=== PATIENT | female | born 1995 | race Caucasian/White ===

== ENCOUNTER 2021-05-29 09:24 | Outpatient (CLI) | payer MEDICAID, SELFPAY ==
[2021-05-29 10:42] LABS: HCG Quant, Pregnancy 2112 mIU/mL (1-3)
== END 2021-05-29 09:25 | disposition home or self-care (01) ==
LOC: LBO 09:25
PROVIDERS: Visit Provider Obstetrics & Gynecology
DX: O03.9 Complete or unspecified spontaneous abortion without complication (principal)
CPT/HCPCS: 36415; 86850; 86900; 86901; 84702

== ENCOUNTER 2021-06-05 04:21 | Outpatient (CLI) | payer MEDICAID, SELFPAY ==
[2021-06-05 10:26] LABS: HCG Quant, Pregnancy 214 mIU/mL (1-3)
== END 2021-06-05 04:22 | disposition home or self-care (01) ==
LOC: LBO 04:22
PROVIDERS: Visit Provider Obstetrics & Gynecology
DX: O03.9 Complete or unspecified spontaneous abortion without complication (principal)
CPT/HCPCS: 36415; 84702

== ENCOUNTER 2021-06-17 01:40 | Outpatient (CLI) | payer MEDICAID, SELFPAY ==
[2021-06-17 16:35] LABS: HCG Quant, Pregnancy 11 mIU/mL (1-3)
== END 2021-06-17 01:41 | disposition home or self-care (01) ==
LOC: LBO 01:41
PROVIDERS: Visit Provider Obstetrics & Gynecology
DX: O03.9 Complete or unspecified spontaneous abortion without complication (principal)
CPT/HCPCS: 36415; 84702

== ENCOUNTER 2022-07-21 02:32 | Outpatient (CLI) | payer MEDICAID, SELFPAY ==
[2022-07-21 11:12] LABS: Abs Immature Grans 0.03 10^3/uL (0.0-0.06); Absolute Basophil Count 0.04 10^3/uL (0.0-0.2); Absolute Eosinophil Count 0.08 10^3/uL (0.0-0.7); Absolute Lymphocyte Count 1.54 10^3/uL (1.2-3.4); Absolute Monocyte Count 0.72 10^3/uL (0.1-0.8); Absolute Neutrophil Count 6.88 10^3/uL (1.2-6.7); Basophils % 0.4; Eosinophils % 0.9; HCT 40.2 % (36.0-46.0); HGB 13.8 g/dL (11.2-15.7); Immature Grans % 0.3; Lymphocytes % 16.6; MCH 28.5 pg (27.0-33.0); MCHC 34.3 % (32.0-36.0); MCV 83 fL (80-95); MPV 9.8 fL (8.0-11.0); Monocytes % 7.8; Platelet Count 297 10^3/uL (130-400); RBC 4.84 10^6/uL (3.93-5.22); RDW-SD 36.2 fL; WBC 9.29 10^3/uL (4.4-10.8)
[2022-07-22 09:30] LABS: Hepatitis B Surface Ag Negative (Negative)
[2022-07-22 10:01] LABS: Hepatitis C Ab w Rflx HCV PCR Negative (Negative)
[2022-07-22 10:24] LABS: HIV-1/2 Ag & Ab Screen Negative (Negative)
[2022-07-22 10:55] LABS: Varicella IgG Antibody Positive (See Note)
[2022-07-22 11:45] LABS: Rubella IgG Ab (UVM) Equivocal (See Note)
[2022-07-22 23:00] LABS: Syphilis IgG w/Reflex Nonreactive (Nonreactive)
== END 2022-07-21 02:33 | disposition home or self-care (01) ==
LOC: LBO 02:33
PROVIDERS: Visit Provider Advanced Practice Midwife
DX: Z34.91 Encounter for supervision of normal pregnancy, unspecified, first trimester (principal); Z3A.12 12 weeks gestation of pregnancy
CPT/HCPCS: 36415; 86787; 86803; 86850; 86900; 86901; 87340; 87389; 85025; 86762; 86780

== ENCOUNTER 2022-07-21 11:02 | Outpatient (REF) | payer MEDICAID, SELFPAY ==
--- NOTE | 2022-07-21 10:20 | PAPFT_PTH ---
PATIENT: Sonam Coronel LOC: [facility] U#:[id number] AGE/SX: 27/F ROOM: RE07/21/[address]: Rosario London CNM : 1995 BED: DIS: 07/21/2022 SPEC #: [id number] RECD: 07/21/22 13:08 STATUS: LIBIA REQ #: [id number] NEELA: 07/21/22 10:[address]: Rosario London DEPT: [facility] Cytology RECD BY: Beverly Nguyen Tissues: 1 - CX/ENDOCX FOR PAP SMEARS Procedures: PAP THIN PREP/UVM Screening Comments: [id number] (CHLAMYDIA/GC)
[2022-07-21 11:40] LABS: *AMPHETAMINES SCREEN URINE Negative (Negative); *BARBITURATES SCREEN URINE Negative (Negative); *BENZODIAZEPINES SCREEN URINE Negative (Negative); Cannabinoids THC Negative (Negative); Cocaine Screen,Urine Negative (Negative); METHADONE URINE SCREEN Negative (Negative); OPIATES URINE SCREEN Negative (Negative)
[2022-07-21 11:44] LABS: Tricyclic Antidepressants Negative (Negative)
[2022-07-22 13:41] LABS: Chlamydia Result Negative (Negative); GC Result Negative (Negative)
[2022-07-26 02:53] LABS: Buprenorphine Negative ng/mL (Cutoff: 5.0); Norbuprenorphine Negative ng/mL (Cutoff: 2.5)
== END 2022-07-21 11:03 | disposition home or self-care (01) ==
LOC: LBN 11:02
PROVIDERS: Visit Provider Advanced Practice Midwife
DX: Z34.91 Encounter for supervision of normal pregnancy, unspecified, first trimester (principal); Z11.3 Encounter for screening for infections with a predominantly sexual mode of transmission; Z12.4 Encounter for screening for malignant neoplasm of cervix; Z3A.12 12 weeks gestation of pregnancy
CPT/HCPCS: 80307; 80348; 87491; 87591; 88142; 87086

== ENCOUNTER 2022-09-20 00:49 | Outpatient (CLI) | payer MEDICAID, SELFPAY ==
--- NOTE | 2022-09-20 08:00 | DI.US_ITS ---
Exam(s) US OB 2-3 TRIMESTER EXAM: US OB 2-3 TRIMESTER CLINICAL HISTORY: morphology,Z34.92. TECHNIQUE: Transabdominal obstetrical ultrasound performed. COMPARISON: US POCUS EXAM from 06/23/2022 FINDINGS: Number of fetuses: One. position: Variable Placental grade: 1 Placental location: Anterior no evidence of previa. BIOMETRIC DATA: BPD: 49mm = 20+ 6 weeks HC: 189mm = 21+ weeks AC: 165mm = 20 1+4 weeks FL: 33mm = 20+ 2 weeks Cisterna Magna: 4.2 mm Cerebellum: 2.0 cm EFW: 3 9 grms 38% Composite Age: 21+ 0 weeks EDC by US: 31 January 2023 Heart Rate: 135BPM Amniotic fluid : Amount of fluid is within normal limits. ANATOMICAL SURVEY: Four-chambered heart: Unremarkable. LVOT: Unremarkable. RVOT: Unremarkable. Left-sided stomach: Unremarkable. urinary bladder: Unremarkable. Bilateral kidneys: Unremarkable. Three-vessel cord: Unremarkable. Cord insertion: Unremarkable. Posterior fossa:Unremarkable. ventricles: Unremarkable. nose: Unremarkable. lips: Unremarkable. palate: Unremarkable. spine: Unremarkable. Two arms and two legs: Unremarkable. IMPRESSION: 1. Single live intrauterine with composite age is 21+0 weeks.. 2. Normal anatomic survey. DATA REPOSITORY:
== END 2022-09-20 01:09 ==
LOC: DI 00:49
PROVIDERS: Visit Provider Advanced Practice Midwife
DX: Z34.92 Encounter for supervision of normal pregnancy, unspecified, second trimester (principal)
CPT/HCPCS: 76805

== ENCOUNTER 2022-11-08 03:02 | Outpatient (CLI) | payer MEDICAID, SELFPAY ==
[2022-11-08 09:51] LABS: HGB 12.3 g/dL (11.2-15.7); MCH 30.4 pg (27.0-33.0); MCHC 35.1 % (32.0-36.0); MCV 87 fL (80-95); MPV 9.8 fL (8.0-11.0); Platelet Count 272 10^3/uL (130-400); RBC 4.04 10^6/uL (3.93-5.22); RDW 12.4 % (11.7-14.6); RDW-SD 39.5 fL; WBC 9.43 10^3/uL (4.4-10.8)
[2022-11-08 10:07] LABS: Glucose,1 Hr (Glucola) 109 mg/dL (80-140)
== END 2022-11-08 03:03 | disposition home or self-care (01) ==
LOC: LBO 03:02
PROVIDERS: Visit Provider Obstetrics & Gynecology
DX: Z34.93 Encounter for supervision of normal pregnancy, unspecified, third trimester (principal)
CPT/HCPCS: 36415; 82950; 85027; 86850

== ENCOUNTER 2024-11-10 21:36 | Emergency (ER) | payer MEDICAID, SELFPAY ==
[2024-11-10 21:38] VITALS: BP 147/88; PULSE 63; RESP 16; O2SAT 98
--- NOTE | 2024-11-10 21:48 | W.EDPROG ---
Date of service: 11/10/24 Time of Service: 21:49 Medical Decision Making I saw this patient upon her arrival. She was well-appearing and not tachycardic nor hypotensive. She reports being 4 weeks having spotting over the weekend which got worse today. She is changing a pad 3-4 times per day. I ordered CBC, comprehensive metabolic panel and type and screen along with quantitative hCG. Patient will get changed into a gown. Discharge Plan Discharge Details Chief Complaint: [employer] ED Provider: Remington Blankenship Home Meds and New Rx's Prescriptions: No Action Gummies 400 mcg-35 mg- 25 mg-5 mg tablet,chewable 1 tab PO DAILY
[2024-11-10 22:08] LABS: Abs Immature Grans 0.03 10^3/uL (0.0-0.06); HCT 39.0 % (36.0-46.0); HGB 13.2 g/dL (11.2-15.7); Immature Grans % 0.3 %; MCH 28.4 pg (27.0-33.0); MCHC 33.8 % (32.0-36.0); MCV 84 fL (80-95); MPV 9.6 fL (8.0-11.0); Platelet Count 313 10^3/uL (130-400); RBC 4.64 10^6/uL (3.93-5.22); RDW 12.1 % (11.7-14.6); RDW-SD 36.7 fL; WBC 9.12 10^3/uL (4.4-10.8)
--- NOTE | 2024-11-10 22:11 | W.ED.GENAD ---
Discharge Plan Disposition Patient Disposition: Other Disposition Not Listed Other Facility: [facility] ED Condition: Stable Discharge Details Clinical Impression: Vaginal bleeding in Primary Care Provider: Unknown,Unknown ED Provider: Melva Pollack Home Meds and New Rx's Prescriptions: No Action Gummies 400 mcg-35 mg- 25 mg-5 mg tablet,chewable 1 tab PO DAILY Discharge Instructions Additional Instructions: Go directly the emergency department at [facility] [place]. [place] [id number] HPI General Mode of arrival: ambulatory. Date/Time Provider Initiated Documentation: 11/10/24 21:38. Limitations to Documentation: no limitations. Information obtained by: patient and family. HPI Narrative: 29yo F thinks she is ~4 weeks presenting for vaginal bleeding. LMP sometime at the end of September, not sure exact date. + home test. Has not seen OB yet. Has been spotting for the past 2-3 days, today with more regular bleeding and small clots. Changed her pad 3 times today but it was not saturated; changed because she wanted to see if she was still bleeding. No abdominal pain. Occasional minor low back discomfort, not bothersome. Otherwise in her usual state of health with no fevers, chills, rash, nausea, vomiting, dysuria, presycnope, other vaginal discharge, or other concerns. Related Data Home Medications ?Medication ?Instructions ?Recorded ?Confirmed PNV 153-FA 400 mcg-om3 35 mg-dha 1 tab PO DAILY 06/08/22 11/10/24 25 mg-epa 5 mg-fish oil chew tablet ( Gummies) Allergies Allergy/AdvReac Type Severity Reaction Status Date / Time No Known Allergies Allergy Verified 11/10/24 21:41 General Stated Complaint: SALES [employer]: 3 Review of Systems Narrative: see HPI Exam Narrative Exam Narrative: General: Alert, well appearing, well nourished, in no acute distress. Head: Normocephalic, atraumatic Neck: Trachea midline, ?Neck supple. Cardiac: ?RRR, no murmurs appreciated Resp: No respiratory distress. CTAB. Abd: ?Soft, non-distended, nontender : ?No suprapubic tenderness. Mild left adenxal tenderness. Normal external genitalia with no lesions.?No active bleeding on external exam. Extremities: ?No deformities.? No peripheral edema. Neurologic: GCS 15. ? Moves all extremities freely against gravity Course Vital Signs Vital signs: Vital Signs Pulse 63 11/10/24 21:38 Respiratory Rate 16 11/10/24 21:38 Blood Pressure 147/88 H 11/10/24 21:38 Pulse Oximetry 98 11/10/24 21:38 Pulse 63 11/10/24 21:38 Respiratory Rate 16 11/10/24 21:38 Blood Pressure 147/88 H 11/10/24 21:38 Pulse Oximetry 98 11/10/24 21:38 Pain Level 3 11/10/24 21:38 Lab/Test Results Lab/Test Results: Laboratory Tests Range/Units 11/10/24 22:00 WBC (4.4-10.8) 10^3/uL 9.12 RBC (3.93-5.22) 10^6/uL 4.64 Hgb (11.2-15.7) g/dL 13.2 Hct (36.0-46.0) % 39.0 MCV (80-95) fL 84 MCH (27.0-33.0) pg 28.4 MCHC (32.0-36.0) % 33.8 RDW (11.7-14.6) % 12.1 Plt Count (130-400) 10^3/uL 313 MPV (8.0-11.0) fL 9.6 Immature Gran % % 0.3 Neutrophils % % 62.4 Lymphocytes % % 27.1 Monocytes % % 7.7 Eosinophils % % 2.0 Basophils % % 0.5 Nucleated RBC % (0.0-0.3) % 0.0 Absolute Neutrophils (1.2-6.7) 10^3/uL 5.69 Absolute Lymphocytes (1.2-3.4) 10^3/uL 2.47 Absolute Monocytes (0.1-0.8) 10^3/uL 0.70 Absolute Eosinophils (0.0-0.7) 10^3/uL 0.18 Absolute Basophils (0.0-0.2) 10^3/uL 0.05 Medical Decision Making 29yo F thinks she is ~4 weeks presenting for vaginal bleeding; LMP sometime at the end of September, not sure exact date, has not seen OB yet.. + home test. Spotting for the past 2-3 days increasing today. Vital signs reassuring on arrival. No active bleeding on external genital exam, mild left adenxal tenderness. Labs reviewed as below, CBC reassuring with no anemia, CMP with no actionable abnormalities, rh + (no inidcation for rhogam), bHCG ~3100. Given unknown location of , warrants US which is not available at [facility] overnight. Repeat vital signs remain reassuring. Discussed with [facility] transfer center and accepted ED to ED under Dr. Cerrato. Patient refused ambulance transport and would prefer to go private vehicle; with her stable vital signs and lack of significant pain low suspicion for ruptured ectopic at this time. Transferred to [facility] by private vehicle; patient and partner at bedside aware to go directly to [facility] ED and the improtance of this was stressed. Medical Records Medical records reviewed: Yes I reviewed the patient's medical records. Medical records narrative: Laboratory Tests Range/Units 11/10/24 22:00 WBC (4.4-10.8) 10^3/uL 9.12 RBC (3.93-5.22) 10^6/uL 4.64 Hgb (11.2-15.7) g/dL 13.2 Hct (36.0-46.0) % 39.0 MCV (80-95) fL 84 MCH (27.0-33.0) pg 28.4 MCHC (32.0-36.0) % 33.8 RDW (11.7-14.6) % 12.1 Plt Count (130-400) 10^3/uL 313 MPV (8.0-11.0) fL 9.6 Immature Gran % % 0.3 Neutrophils % % 62.4 Lymphocytes % % 27.1 Monocytes % % 7.7 Eosinophils % % 2.0 Basophils % % 0.5 Nucleated RBC % (0.0-0.3) % 0.0 Absolute Neutrophils (1.2-6.7) 10^3/uL 5.69 Absolute Lymphocytes (1.2-3.4) 10^3/uL 2.47 Absolute Monocytes (0.1-0.8) 10^3/uL 0.70 Absolute Eosinophils (0.0-0.7) 10^3/uL 0.18 Absolute Basophils (0.0-0.2) 10^3/uL 0.05 Sodium (136-145) mmol/L 138 Potassium (3.5-5.1) mmol/L 3.8 Chloride (98-107) mmol/L 102 Carbon Dioxide (21.0-32.0) mmol/L 25.8 Anion Gap (3-11) mmol/L 10.2 BUN (7-18) mg/dL 11 Creatinine (0.55-1.02) mg/dL 0.6 Est GFR (CKD-EPI 2020) (mL/min/1.73m2) 124.53 Glucose (74-106) mg/dL 102 Calcium (8.5-10.1) mg/dL 9.1 Total Bilirubin (0.2-1.0) mg/dL 0.2 AST (15-37) U/L 12 L ALT (14-59) U/L 21 Alkaline Phosphatase (46-116) U/L 61 Total Protein (6.4-8.2) g/dL 7.1 Albumin (3.4-5.0) g/dL 3.8 Beta HCG, Quant (1-3) mIU/mL 3163 H ABO/Rh O Positive Antibody Screen NEGATIVE PFSH All Active Problems Vaginal bleeding in (Acute) Rubella non-immune status, antepartum (Acute) immunity is equivocal (Acute) Neuropathy of both feet (Acute) has had evaluation with limited information on name Need for financial support (Acute) Medical History (Updated 11/10/24 @ 23:11 by Melva Pollack MD) Spontaneous Family History Father Hypertension Migraine Mother Hypertension Paternal Grandmother Breast cancer Social History Smoking/Tobacco Use Status: Never Smoking risk assessment performed?: Yes Alcohol Intake: never Drug use: Never Adopted: No Household members: spouse Housing: house Communication Needs: None Education Level: high school Do you need help understanding health information?: Never Pets and animals: No Sexually active: Yes Do you think of yourself as: straight/heterosexual Current gender identity: female What is your relationship status?: How often do you talk on the phone with friends or family?: three or more times per week How often do you get together with friends or relatives?: three or more times per week How often do you attend christian or scientologist services?: 4 or more times per year Do you belong to any clubs or organized social groups?: no Panel score (0-1 are the most socially isolated patients): 3 What type of physical activity do you participate in: walking Duration: 15-30 minutes/day Frequency: 3-4 times per week Shana/Yarsani: Uatsdin Special shana needs: No Agree to transfusion: Yes Seatbelt use: always Helmet use: Yes Drive intox 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
[2024-11-10 22:45] LABS: ALT 21 U/L (14-59); AST 12 U/L (15-37); Albumin 3.8 g/dL (3.4-5.0); Alkaline Phosphatase 61 U/L (46-116); Anion Gap 10.2 mmol/L (3-11); BUN 11 mg/dL (7-18); Bilirubin, Total 0.2 mg/dL (0.2-1.0); CO2 25.8 mmol/L (21.0-32.0); Calcium 9.1 mg/dL (8.5-10.1); Chloride 102 mmol/L (98-107); Estimated GFR 124.53 (mL/min/1.73m2); Glucose 102 mg/dL (74-106); HCG Quant, Pregnancy 3163 mIU/mL (1-3); Potassium 3.8 mmol/L (3.5-5.1); Sodium 138 mmol/L (136-145); Total Protein 7.1 g/dL (6.4-8.2)
== END 2024-11-10 23:24 | disposition short-term general hospital (02) ==
PROVIDERS: Emergency Medicine; Emergency Provider Student in an Organized Health Care Education/Training Program
DX: Z3A.01 Less than 8 weeks gestation of pregnancy; O46.8X1 Other antepartum hemorrhage, first trimester
CPT/HCPCS: 99285 ×2; 00123; 80053; 86850; 86900; 86901; 84702; 85025